=== PATIENT | male | born 1965 | race African-American/Black ===

== ENCOUNTER → 2017-12-14 | Day surgery (SDC) | payer OTHER ==
[~2017-12-14] MED LIST: LIDOCAINE 1% PF 2 ML VIAL. ID; LIDOCAINE 2% 100 MG/5 ML SYRINGE.; MIDAZOLAM HCL/PF 2 MG/2 ML VIAL. IV; PROPOFOL 20 ML IV; fentaNYL PF VIAL 100 MCG/2 ML VIAL IV
[2017-12-14] MEDS: IV RINGERS,LACTATED 1000ML 1,000 ML IV (13:15)
== END | disposition home or self-care (01) ==
LOC: SURG 12:41
DX: K64.8 Other hemorrhoids (principal)
CPT/HCPCS: 45378; J2704